=== PATIENT | male | born 1965 | race Caucasian/White ===

== ENCOUNTER → 2019-08-21 | Day surgery (SDC) | payer BC ==
--- NOTE | 2019-05-28 12:32 | Pre Op History & Physical ---
DATE OF SURGERY: 05/29/2019. CHIEF COMPLAINT: Lesions of vocal folds post workup. HISTORY OF PRESENT ILLNESS: This 53-year-old male has history of hoarseness for many years. The patient denies any dysphagia, odynophagia, or shortness of breath. He denies any choking. The patient is a smoker, but is a nondrinker. He was noted to have a lesions in his vocal folds, worse on the right side. REVIEW OF SYSTEMS: System review showed no recent cardiovascular, respiratory, or GI problem. PAST MEDICAL HISTORY: The patient has type 2 diabetes. PAST SURGICAL HISTORY: The patient has previous surgery to the elbow. ALLERGIES: HE HAS NO KNOWN ALLERGY TO MEDICATION. MEDICATIONS: He is on Jardiance, insulin 70/30, tramadol, gabapentin, Tylenol No.4, and Tizanidine. SOCIAL HISTORY: He is a pack-a-day smoker. Nondrinker. FAMILY HISTORY: Noncontributory. PHYSICAL EXAMINATION: VITAL SIGNS: The patient's vital signs were within normal limits. GENERAL: He was seen with his . HEENT: Ear exam showed normal tympanic membrane bilaterally. Nasal exam show polyps in both vocal folds. Nasal endoscopy showed the patient has mobile vocal cords bilaterally with polypoid changes of the vocal folds, right side worse than the left. No lesion in the hypopharynx was noted. Oropharynx and oral cavity show 2+ tonsils bilaterally with Mallampati level 2. NECK: Showed no lymph node or thyroid palpable. CHEST: Showed good air entry bilaterally. CARDIOVASCULAR: Showed S1, S2. No murmur noted. ASSESSMENT AND PLAN: Mr. Kumar has hoarseness and he is a smoker. He was noted to have a lesions in his vocal folds. The suggested treatment is panendoscopy, microlaryngoscopy, and biopsy and other necessary procedure. Complication of procedure includes, but not limited to bleeding, infection, perforation of the esophagus, pneumomediastinum, immediate sinusitis, airway compromise, persistent recurrence of the problem. Alternatives will be continue observation, continue antibiotic therapy, topical nasal steroid therapy, systemic steroid therapy, repeat flexible laryngoscopy exam. The patient and his have elected to undergo surgical procedure. MD EARL Azevedo/WALTER /[id number]
[~2019-08-21] MED LIST: CHANTIX0.5 MG; CRESTOR10 MG PO; DEXAMETHASONE SOD PHOS INJ 4 MG/ML VIAL ONE; EPINEPHRINE HCL 1:1000 1ML 1 MG/ML AMP ONE; FENTANYL CITRATE/PF 100MCG/2 ML INJ ONE; GABAPENTIN800 MG PO; JARDIANCE25 MG PO; LEVSIN0.125 MG; LIDOCAINE 1% W/EPINEPHRINE 20 ML VIAL ONE; LIDOCAINE HCL 2% LOCAL INJ 5 ML SDV VIAL INJ ONE; MIDAZOLAM HCL 2 MG/2 ML VIAL ONE; ONDANSETRON HCL INJ 2MG/ML 2ML 2 MG/ML VIAL ONE; OXYMETAZOLINE HCL 0.05% NAS 1 SPRAY BTL ONE; PROPOFOL IV EMULSION 10 MG/ML 20 ML VIAL ONE; SEVOFLURANE INHAL SOLN 250 ML PEN BTL ONE; SUGAMMADEX SODIUM 200 MG/2 ML VIAL IV ONE; TIZANIDINE HCL4 MG PO; TYLENOL #4 PO; ULTRAM 50MG50 MG PO; VIBERZI100 MG
--- NOTE | 2019-08-21 07:10 | Pre Op History & Physical ---
DATE OF SURGERY: 08/21/2019 CHIEF COMPLAINT: Lesion in the vocal folds bilaterally with hoarseness. HISTORY OF PRESENT ILLNESS: This 54-year-old male has hoarseness for many years. He denies any dysphagia, odynophagia, or shortness of breath. The patient has postnasal drip and discharge from his nose. He smokes more than a pack a day. He is a nondrinker. The patient was scheduled for panendoscopy and microlaryngoscopy in April of 2019. The patient keeps postponing his surgery until now. REVIEW OF SYSTEMS: System review showed no recent cardiovascular, respiratory, or GI problem. PAST MEDICAL HISTORY: The patient has type 2 diabetes. PAST SURGICAL HISTORY: He has previous surgery to his elbow. ALLERGIES: HE HAS NO KNOWN ALLERGIES TO MEDICATIONS. CURRENT MEDICATIONS: He is on: 1. Jardiance. 2. Insulin. 3. Tramadol. 4. Gabapentin. 5. Tylenol No.4. 6. Tizanidine. SOCIAL HISTORY: He smokes more than a pack a day. He is a nondrinker. FAMILY HISTORY: Noncontributory. PHYSICAL EXAMINATION: VITAL SIGNS: The patient's vital signs were within normal limits. He was seen with his . EARS: Showed normal tympanic membranes bilaterally. NASAL: Showed polyps in both nasal cavities. Nasal endoscopy showed polypoid changes in both vocal folds, right side greater than the left with mobile folds bilaterally. No lesions were noted in the hypopharynx. Oropharynx and oral cavity showed 2+ tonsils bilaterally with Mallampati level 2. NECK: Showed no lymph node or thyroid palpable. CHEST: Showed good air entry bilaterally. CARDIOVASCULAR: Showed S1 and S2. No murmur noted. 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 ASSESSMENT AND PLAN: Mr. Kumar has a lesion in the vocal folds and he is a smoker. Suggested treatments, panendoscopy, microlaryngoscopy, and biopsy and other necessary procedures. The complications of procedure includes, but not limited to bleeding, infection, perforation of the esophagus, pneumomediastinum, mediastinitis, airway compromise, hoarseness, persistent recurrence of the problem. The alternatives will be continued observation, repeat flexible laryngoscopy exam and biopsy of the lesion in the office setting. It should be noted that the patient has been worked up by GI recently for weight loss and diarrhea when he eats. The patient and his have elected to undergo surgical procedure. MD KATERIN Azevedo/MODL /[id number] cc: Dr. Casie Donald
--- OUTSIDE RECORDS SUMMARY | 2019-08-21 07:37 | XMS REPORT ---
Author Author [facility] Address Unknown Phone Unavailable Care Team Providers Care Cut Tobacco Bulker Name Role Phone Dylan Edwards Unavailable Unavailable Brandon Lopez Unavailable Unavailable Problems This patient has no known problems. Allergies, Adverse Reactions, Alerts This patient has no known allergies or adverse reactions. Medications This patient has no known medications. Results Test Description Test Time Test Comments Text Results Atomic Results Result Comments Small Bowel Series 2019-06-21 14:51:00 [place] [address] [facility]OLOG[facility] REPORT Name: ARCADIO CHARLES Acct Number: [id number] :1965 Age:53 Sex:M Ord Phys: Dylan Edwards MD Unit Number: [id number] [facility] Dr: Status: REG REF RAD Exam Date: 06/21/19 EXAM DESCRIPTION: RAD - Small Bowel Series - 06/21/2019 2:46 pm CLINICAL HISTORY: R19.7. R63.4, F17.200 Abdominal pain COMPARISON: No comparisons FINDINGS: Memory Care Director film shows a nonspecific bowel gas pattern. No obstruction or free air. No suspicious calcifications. Gastric size and mucosal fold pattern are normal. No delay in transit of contrast into the small bowel. Small bowel is normal in diameter with no mucosal fold thickening. No intrinsic or extrinsic mass identifiable. Terminal ileum has normal appearance. Transit time to the colon is normal. No fluoroscopy was performed. Total images acquired: 15 IMPRESSION: Normal small bowel series. Signed By: Bj Newman MD Signed AT: 06/21/19 1451 Chest Pa And Lat (2 Views) 2019-06-21 12:21:00 [place] [address] [facility] REPORT Name: ARCADIO CHARLES Acct Number: [id number] :1965 Age:53 Sex:M Ord Phys: Dylan Edwards MD Unit Number: [id number] [facility] Dr: Status: REG REF RAD Exam Date: 06/21/19 EXAM DESCRIPTION: RAD - Chest Pa And Lat (2 Views) - 06/21/2019 12:14 pm CLINICAL HISTORY: R19.7. R63.4, F17.200 Chest pain. COMPARISON: CHEST PA AND LAT 2 VIEW dated 09/12/2010 FINDINGS: The lungs are mildly emphysematous but clear. The heart is normal in size. No displaced fractures. IMPRESSION: Mild COPD Signed By: Bj Newman MD Signed AT: 06/21/19 1221 Anaerobic culture 2017-10-16 08:41:00 Primary Language Malian Comment LEFT OLECRANON BURSA NO ANAEROBES GROWN.^NO ANAEROBES GROWN.^L Gram stain 2017-10-16 08:41:00 NO ORGANISMS SEEN (test code=NO ORGAN) . NO WBCS SEEN (test code=NO WBCS) . Primary Language Malian Comment LEFT OLECRANON BURSAGlucose blood fingerstick 2017-10-15 11:44:00* Test Item Value Reference Range Comments Glucose blood fingerstick (test rkgf=TSO8849) 141 mg/dL 65-120 Bacterial culture w [id number] 10:40:00* Test Item Value Reference Range Comments Bacterial culture w ID (test uqfn=7333-0) NO GROWTH Primary Language Malian Comment LEFT OLECRANON BURSAGlucose blood fingerstick 2017-10-15 08:10:00* Test Item Value Reference Range Comments Glucose blood fingerstick (test dbqh=GIJ3987) 159 mg/dL 65-120 Glucose blood uhbpggxuwit7327-17-49 20:10:00* Test Item Value Reference Range Comments Glucose blood fingerstick (test qejf=XEN4768) 231 mg/dL 65-120 Glucose blood vkgokblrxbj2925-44-19 15:38:00* Test Item Value Reference Range Comments Glucose blood fingerstick (test yiba=IZG1291) 128 mg/dL 65-120 Trough vancomycin dlhvn2839-65-61 14:49:00* Test Item Value Reference Range Comments Trough vancomycin level (test xpgo=4821-5) 11.3 ug/mL 5-20 INDICATIONS AND DESIRED TROUGH LEVELS: Nosocomial & ventilator associated pneumonia, SHAKER FLATWORK infections (e.g. Meningitis), Osteomyelitis, & Prosthetic joint infections..................................15-20 ug/mL Endocarditis, febrile neutropenia...............10-15 ug/mL All other indications........................... 5-15 ug/mL Primary Language EnglishGlucose blood biygelbhtwx8112-54-33 14:25:00* Test Item Value Reference Range Comments Glucose blood fingerstick (test nwcj=XFV5391) 132 mg/dL 65-120 Glucose blood bqrcgazxdjy6803-93-61 11:41:00* Test Item Value Reference Range Comments Glucose blood fingerstick (test prii=ACM0153) 127 mg/dL 65-120 06629--ZXFS PATH LEVEL 59091-27-35 09:40:00 RUN DATE: 10/14/17 [facility]Edith walker* PAGE 1 RUN TIME: 940 Specimen Inqu irina PATIENT: ARCADIO CHARLES ACC T: [id number] LOC: 2ND U: [id number] AGE/SX: 52/M ROOM: 206 RE10/11/17REG DR: [facility] shanita Lopez MD : 1965 BED: A DIS: STATUS: ADM IN TLOC: SP EC : [id number] RECD: 10/13/17 STATUS: JENNIFER DENNEY NUM: [id number] PEDRO: 10/12/17 DR: Merrick Lopez MD ENTERED: 10/13/17 SP TYPE: INPATIENT OTHR DR: Nathen Jason MD ORDERED: [id number] CODES: ELBOW, NOS COPIES TO: Nathen Jason MD [address] [place], [place] [address] Merrick Lopez MD [address] [facility] [address] [place] [address] PROCEDURES: 33635 (10/13/17) TISSUES: ELBOW, NOS - LEFT OLECRANON DEBRIDEMENT TISSUE CLINICAL HISTORY Pre-op Diagnosis: Left septic olecranon bursa.Post-op Diagnosis: Same. DIAGNOSIS Left olecranon debrideme nt tissue: - Bursa sac with bursitis CPT 32451 GROSS DESCRIPTION The case is received in one part, labeled with the patient's name "Arcadio Charles" and accession #[id number] accompanied by a requisition slip labeled with the patient's name andthe same accession number. The specimen is received in formalin, labeled "left olecranon debridement tissue" andconsists of a fragment of purple-chavez s oft tissue measuring 7.5 x 2.7 x 1 cm. The cutsection reveals fibrous tissue and a possible bursa sac. Several appeals representative sections aresubmitted in two puebloe ttes. (ASW) CONTINUED ON NEXT PAGE --- --------- RUN DATE: 10/14/17 [facility]* PAGE 2 RUN TIME: 940 Specimen Inquiry SPEC: [id number] PATIENT: ARCADIO CHARLES [id number] (Continued) MICROSCOPIC DESCRIPT ION Sections show an apparent bursa sac with a thickened fibrous wall with chron ic reactivechanges. Within the sac, there is associated fibrinous material.----- ------- Signed (signature on file) Kaylie Marinelli MD 8 0940 END OF REPORT Glucose blood jmrzeonsgfx5685-46-56 08:07:00* Test Item Value Reference Range Comments Glucose blood fingerstick (test upnu=ZPZ6173) 170 mg/dL 65-120 Glucose blood hnqvpgnyefz2445-14-13 20:51:00* Test Item Value Reference Range Comments Glucose blood fingerstick (test zyrh=KQV6390) 182 mg/dL 65-120 Glucose blood twuhysakxvb4303-84-28 16:15:00* Test Item Value Reference Range Comments Glucose blood fingerstick (test nbdg=IAB8896) 154 mg/dL 65-120 Glucose blood bvkrlfzlylt1739-85-18 13:32:00* Test Item Value Reference Range Comments Glucose blood fingerstick (test ydil=KBI1440) 143 mg/dL 65-120 Glucose blood mracniqsrup0165-55-21 13:32:00* Test Item Value Reference Range Comments Glucose blood fingerstick (test sprw=XQW8779) 191 mg/dL 65-120 Glucose blood itluofyskrx7885-21-29 13:31:00* Test Item Value Reference Range Comments Glucose blood fingerstick (test bjra=FIP5084) 189 mg/dL 65-120 Glucose blood kzcukotllbf7477-24-93 13:31:00* Test Item Value Reference Range Comments Glucose blood fingerstick (test vkjf=NGI6439) 150 mg/dL 65-120 Glucose blood qxmzmkvsnfe8156-29-67 13:31:00* Test Item Value Reference Range Comments Glucose blood fingerstick (test qixc=BYF1853) 132 mg/dL 65-120 Glucose blood yjpeobyhdcz0528-55-91 13:31:00* Test Item Value Reference Range Comments Glucose blood fingerstick (test ddng=GRH5599) 205 mg/dL 65-120 Glucose blood cfzmmtdcsgm3048-88-40 13:31:00* Test Item Value Reference Range Comments Glucose blood fingerstick (test aakj=YQN8444) 100 mg/dL 65-120 Glucose blood oorqrzhorkt7663-13-87 13:29:00* Test Item Value Reference Range Comments Glucose blood fingerstick (test apbf=LNY9504) 138 mg/dL 65-120 Glucose blood oiawxnqgydd4545-16-53 13:27:00* Test Item Value Reference Range Comments Glucose blood fingerstick (test ojrz=XRV4254) 197 mg/dL 65-120 Trough vancomycin jsaqu4999-11-55 03:30:00* Test Item Value Reference Range Comments Trough vancomycin level (test nrqz=1921-8) 11.9 ug/mL 5-20 INDICATIONS AND DESIRED TROUGH LEVELS: Nosocomial & ventilator associated pneumonia, SHAKER FLATWORK infections (e.g. Meningitis), Osteomyelitis, & Prosthetic joint infections..................................15-20 ug/mL Endocarditis, febrile neutropenia...............10-15 ug/mL All other indications........................... 5-15 ug/mL Primary Language SxoxeroGpyfgdfqfq3933-22-12 10:40:00* Test Item Value Reference Range Comments Urine color (test zcyd=6799-4) YELLOW Urine appearance determination (test wsjd=7764-9) CLEAR Urine specific gravity measurement (test sxaf=1944-2) 1.015 1.005-1.030 Urine glucose detection (test yalw=8459-6) 3+ NEG Urine bilirubin detection (test zstv=2769-7) Negative NEG Urine Ketones (test code=UKET) NEGATIVE NEG Urine blood detection (test ftkc=13896-9) Negative NEG Urine pH (test hrnr=3709-1) 5.5 5.0-7.0 Urinalysis with microscopy (test wlqm=98436-9) NEGATIVE NEG Urine urobilinogen detection (test gqoz=66733-8) 0.2 0.2-1.0 Urine Nitrate (test code=UNIT) NEGATIVE NEG Urine Leukocyte Esterase (test code=UESTR) NEGATIVE NEG Primary Language Malian HOW IS URINE COLLECTED? Clean Catch UrineComprehensive metabolic tpoxo9398-94-09 12:57:00* Test Item Value Reference Range Comments Sodium level (test zdbd=EWS4126) 135 meq/L 135-145 4.3 Chloride measurement (test quiq=QHE4786) 102 meq/L 101-111 Bicarbonate (test code=CO2) 27 meq/L 21-31 Glucose measurement (test yszh=EVX5887) 254 mg/dL 65-120 ADA Clinical Practice Recommendation: <100 mg/dl=Normal Fasting Glucose BUN Bld-mCnc (test nslr=8923-4) 9 mg/dL 6-20 Creatinine measurement (test nuxd=QNZ4004) 0.83 mg/dL 0.61-1.24 The creatinine method used has been calibrated to be traceable to Isotope dilution Mass Spectrometry (IDMS). For more information: www.nkdep.nih.gov Estimated glomerular filtration rate (GFR) determination (test lndq=50426-6) >90 mL =/>90 FOR CHRONIC KIDNEY DISEASE: GFR STAGE DESCRIPTION=/>90 STAGE 1 NORMAL--OR-- MINIMAL KIDNEY DAMAGE WITH NORMAL GFR 60-89 STAGE 2 MILD DECREASE IN GFR 30-59 STAGE 3 MODERATE DECREASE IN GFR 15-29 STAGE 4 SEVERE DECREASE IN GFR <15 STAGE 5 KIDNEY FAILURE The Glomerular Filtration Rate (GFR) has been calculated using the IDMS-Traceable MDRD Study Equation. Aspartate aminotransferase (AST) measurement (test uhfc=XZH5868) 17 [iU]/L 10-42 ALT/SGPT (test code=SGPT) 18 [iU]/L 10-60 Alkaline Phosphatase (test code=ALK) 86 [iU]/L 42-121 Bilirubin total (test cwtp=LDF5642) 0.4 mg/dL 0.3-1.2 Calcium Level (test code=CA) 9.3 mg/dL 8.5-10.5 Serum total protein measurement (test acjn=2477-7) 7.5 g/dL 6.0-8.3 Albumin measurement (test boxx=WSB3661) 4.2 g/dL 3.2-5.5 Globulin (test code=GLOB) 3.3 g/dL 2.3-3.5 Albumin/Globulin Ratio (test code=A/G) 1.3 1.1-1.8 Primary Language EnglishC-Reactive Pfixqka8301-21-85 12:57:00* Test Item Value Reference Range Comments C-Reactive Protein (test code=CRP) 5.2 mg/L <10.0 Primary Language EnglishErythrocyte sedimentation rate (ESR) by Westergren oekzjl7002-06-11 12:51:00* Test Item Value Reference Range Comments Erythrocyte sedimentation rate (ESR) by Westergren method (test evrm=1675-8) 1 mm/HR 0-20 Primary Language EnglishComplete blood count (CBC) with automated white blood cell (WBC) ysmzavcixonk0905-30-48 11:30:00* Test Item Value Reference Range Comments White blood cell count (test rszt=KRG9140) 9.2 4.3-10.9 Blood erythrocytes count (number/volume) (test sfip=67603-9) 5.51 M/ul 4.33-5.43 Hemoglobin measurement (test rfnp=OML3269) 17.0 g/dL 13.6-17.9 Blood hematocrit (volume fraction) (test uwlq=52594-2) 49.6 % 39.6-49.0 MCV (test uehk=65972-0) 90.1 fL 80-100 MCH (test erjk=91706-1) 30.8 pg 27.0-35.0 MCHC (test code=MCHC) 34.2 g/dL 32.0-36.0 Platelets (test code=PLT) 293 152-406 Red Cell Distribution Width (test code=RDW) 13.0 % 12.1-15.2 Blood platelet mean volume (test wydl=74406-9) 9.0 fL 7.6-11.3 Neutrophils % (test code=SANDEEP%) 63.4 % 41.7-73.7 Lymphocytes/leuk NFr Bld (test tnwe=45190-2) 24.5 % 15.3-44.8 Monocyte percentage (test olvw=9618-1) 7.7 % 3.3-12.3 Eosinophil % (test zumf=157-1) 3.9 % 0-4.4 Basophil % (test izwb=71666-3) 0.5 % 0-1.3 Absolute neutrophil count (test elba=525-6) 5.9 1.8-8.0 Absolute lymphocyte count (test ozot=37216-4) 2.3 0.7-4.9 Absolute monocyte count (test bnho=464-1) 0.7 0.1-1.3 Absolute Eosinophils (test code=EOA) 0.4 0-0.5 Absolute Basophils (test code=BASA) 0.0 0-0.5 Primary Language Malian
--- OUTSIDE RECORDS SUMMARY | 2019-08-21 07:37 | XMS REPORT | Continuity of Care Document ---
Author Author [facility] Address [address] [place] [address] Care Team Providers Care Senior Data Quality Analyst Name Role Phone Merrick Lopez Attphys Nathen Jason PCP Nathen Jason PCP Denisse Morrell Rndphys Allergies, Adverse Reactions, Alerts No known allergies. Medications Active Medications Medication Dose Units Route Sig Qty Days Start Date Discontinued Date Status Instructions Acetaminophen With Codeine 1 TAB ORAL AT BEDTIME October 11, 2017 Active Dapagliflozin Propanediol 10 MG ORAL DAILY October 11, 2017 Active Gabapentin 600 MG ORAL FOUR TIMES DAILY October 11, 2017 Active Tramadol Hcl 2 TAB ORAL THREE TIMES A DAY October 11, 2017 Active Tizanidine 4 MG ORAL AT BEDTIME October 11, 2017 Active Doxycycline Hyclate 100 MG ORAL TWICE DAILY 24 October 15, 2017 Active Codeine/Apap 1 TAB ORAL EVERY 6 HOURS NEEDED PRN For Pain 40 October 15, 2017 Active Problem List Active Problems Medical Problem Onset Date Status Septic olecranon bursitis October 13, 2017 Active Procedures Procedure Date Status Gram Stain October 12, 2017 completed Culture & Sensitivity October 12, 2017 completed Relevant Diagnostic Tests and/or Laboratory Data Laboratory Results Test Date/Time Result Interp. Ref. Range Result Comment White Blood Count October 11, 2017 11:04am 9.2 K/uL 4.3-10.9 Red Blood Count October 11, 2017 11:04am 5.51 M/uL High 4.33-5.43 Hemoglobin October 11, 2017 11:04am 17.0 g/dL 13.6-17.9 Hematocrit October 11, 2017 11:04am 49.6 % High 39.6-49.0 Mean Corpuscular Volume October 11, 2017 11:04am 90.1 fL 80-100 Mean Corpuscular Hemoglobin October 11, 2017 11:04am 30.8 pg 27.0-35.0 Mean Corpuscular Hemoglobin Concent October 11, 2017 11:04am 34.2 g/dL 32.0-36.0 Platelet Count October 11, 2017 11:04am 293 K/uL 152-406 Red Cell Distribution Width October 11, 2017 11:04am 13.0 % 12.1-15.2 Mean Platelet Volume October 11, 2017 11:04am 9.0 fL 7.6-11.3 Neutrophils % October 11, 2017 11:04am 63.4 % 41.7-73.7 Lymphocytes % October 11, 2017 11:04am 24.5 % 15.3-44.8 Monocytes % October 11, 2017 11:04am 7.7 % 3.3-12.3 Eosinophils % October 11, 2017 11:04am 3.9 % 0-4.4 Basophils % October 11, 2017 11:04am 0.5 % 0-1.3 Absolute Neutrophil October 11, 2017 11:04am 5.9 K/uL 1.8-8.0 Absolute Lymphocytes (CBC) October 11, 2017 11:04am 2.3 K/uL 0.7-4.9 Absolute Monocytes (CBC) October 11, 2017 11:04am 0.7 K/uL 0.1-1.3 Absolute Eosinophils (CBC) October 11, 2017 11:04am 0.4 K/uL 0-0.5 Absolute Basophils (CBC) October 11, 2017 11:04am 0.0 K/uL 0-0.5 Sedimentation Rate, [place] October 11, 2017 11:04am 1 mm/HR 0-20 Sodium Level October 11, 2017 11:04am 135 mEq/L 135-145 Potassium Level October 11, 2017 11:04am 4.3 mEq/L 3.6-5.0 Chloride Level October 11, 2017 11:04am 102 mEq/L 101-111 Carbon Dioxide Level October 11, 2017 11:04am 27 mEq/L 21-31 Glucose Level October 11, 2017 11:04am 254 mg/dL High 65-120 ADA Clinical Practice Recommendation: <100 mg/dl=Normal Fasting Glucose Bedside Glucose October 15, 2017 11:43am 141 mg/dl High 65-120 Blood Urea Nitrogen October 11, 2017 11:04am 9 mg/dL 6-20 Creatinine October 11, 2017 11:04am 0.83 mg/dL 0.61-1.24 The creatinine method used has been calibrated to be traceable to Isotope dilution Mass Spectrometry (IDMS). For more information: www.nkdep.nih.gov Estimat Glomerular Filtration Rate October 11, 2017 11:04am > 90 mL/min 90- FOR CHRONIC KIDNEY DISEASE: GFR STAGE DESCRIPTION =/>90 STAGE 1 NORMAL--OR-- MINIMAL KIDNEY DAMAGE WITH NORMAL GFR 60-89 STAGE 2 MILD DECREASE IN GFR 30-59 STAGE 3 MODERATE DECREASE IN GFR 15-29 STAGE 4 SEVERE DECREASE IN GFR <15 STAGE 5 KIDNEY FAILURE The Glomerular Filtration Rate (GFR) has been calculated using the IDMS-Traceable MDRD Study Equation. Aspartate Amino Transf (AST/SGOT) October 11, 2017 11:04am 17 IU/L 10-42 Alanine Aminotransferase (ALT/SGPT) October 11, 2017 11:04am 18 IU/L 10-60 Alkaline Phosphatase October 11, 2017 11:04am 86 IU/L 42-121 Total Bilirubin October 11, 2017 11:04am 0.4 mg/dL 0.3-1.2 Calcium Level October 11, 2017 11:04am 9.3 mg/dL 8.5-10.5 Serum Total Protein October 11, 2017 11:04am 7.5 g/dL 6.0-8.3 Albumin October 11, 2017 11:04am 4.2 g/dL 3.2-5.5 Globulin October 11, 2017 11:04am 3.3 g/dL 2.3-3.5 Albumin/Globulin Ratio October 11, 2017 11:04am 1.3 1.1-1.8 C-Reactive Protein October 11, 2017 11:04am 5.2 mg/L Vancomycin Level Trough October 14, 2017 2:13pm 11.3 ug/mL 5-20 INDICATIONS AND DESIRED TROUGH LEVELS: Nosocomial & ventilator associated pneumonia, STERILE PROCESSING TECHNOLOGIST infections (e.g. Meningitis), Osteomyelitis, & Prosthetic joint infections..................................15-20 ug/mL Endocarditis, febrile neutropenia...............10-15 ug/mL All other indications........................... 5-15 ug/mL Urine Color October 12, 2017 7:20am Yellow Urine Appearance October 12, 2017 7:20am Clear Urine Specific [place] October 12, 2017 7:20am 1.015 Urine Glucose October 12, 2017 7:20am 3+ Urine Bilirubin October 12, 2017 7:20am Negative Urine Ketones October 12, 2017 7:20am Negative Urine Blood October 12, 2017 7:20am Negative Urine pH October 12, 2017 7:20am 5.5 Urine Total Protein October 12, 2017 7:20am Negative Urine Urobilinogen October 12, 2017 7:20am 0.2 mg/dL Urine Nitrite October 12, 2017 7:20am Negative Urine Leukocyte Esterase October 12, 2017 7:20am Negative Microbiology Results Procedure Source Result Collection Date/Time Result Date/Time Culture & Sensitivity Wound No results entered October 12, 2017 2:55pm Gram Stain Wound No results entered October 12, 2017 2:55pm Discharge Summary Encounter: Discharged Inpatient Admit Date: October 11, 2017 10:35am Discharge Date: October 15, 2017 12:20pm [facility] NAME: ARCADIO CHARLES ADMITTING: Merrick Lopez MD ADMIT DATE: 10/11/17 ATTENDING: Merrick Lopez MD : 1965 ACCOUNT NO: [id number] PATIENT TYPE: ADM IN LOCATION: [facility] Report Status: Signed Date of Procedure: 10/12/17 Surgeon: Merrick Lopez MD Date of Procedure: 10/12/2017 Surgeon: Merrick Lopez MD Preoperative Diagnosis: Left elbow septic olecranon bursitis. Postoperative Diagnosis: Left elbow septic olecranon bursitis. Procedure Performed: Left elbow irrigation and debridement with bursectomy, leaving it open. Estimated Blood Loss: 20 cc. Complications: There were no complications. Specimens: There was a pathology specimens sent as well as culture specimen sent. Indications For Operation: Mr. Charles is a patient who arrived to see me. He has already had quite a bit of time treating his olecranon which had been quite swollen consistent with olecranon bursitis. At that time, he had not made any significant decreases in his condition, but was not progressing well. He had an aspiration which demonstrated gram-positive cocci and gram-negative rods. However, the cultures did not demonstrate any bacteria. Also, there were no crystals in the fluid. He has been treated with ciprofloxacin as well as Bactrim and essentially has not made any meaningful improvement. So, he does have a slight amount of decrease in erythema and pain. He was , therefore, admitted yesterday for IV antibiotics. He was started on vancomycin. White blood cell count was normal, and sedimentation rate was 1. However, at this time, it is deemed appropriate to pursue bursectomy with irrigation and debridement. All risks, benefits, and alternatives to this have been discussed with the patient. He states he understands things as presented and wishes to proceed. Description Of Procedure: The patient was taken to the operating room and placed in supine position. General anesthesia was obtained by staff. Following this, there were some pillows laid over his abdomen, and his left upper extremity was then prepped and draped in the usual sterile fashion. Following this, the incision was marked out, and the arm was elevated, but not exsanguinated, and tourniquet was raised. It was then laid gently over his stomach with a small bump under his arm to allow for visualization. A standard incision, which was slightly lateral to the olecranon, was then taken down carefully through skin only. Meticulous hemostasis was being maintained using Bovie electrocautery. This proceeded up to the most proximal aspect of the bursa. This was then shelled off from a distal lateral position down to a proximal lateral position, essentially bringing this across slightly past the midline. After this, extreme care was taken on the medial aspect where this was shelled out from the medial distal portion and brought back. Great care was taken around the ulnar nerve, and meticulous hemostasis was maintained. The bursa was then removed. Combination of curette and rongeur was then used to remove any nonviable- appearing tissue. The arm was then copiously irrigated with 2 L of sterile saline. This was followed by dropping of the tourniquet and controlling hemostasis with Bovie. These typically will ooze from nearly everywhere. However, following the use of the Bovie, some pressure was applied, and there was found to be no significant bleeding. A moistened Kerlix was then placed within the wound bed, and it was then covered with 3 ABDs. This was followed by placement of soft roll, followed by a posterior splint. The patient was then awakened and taken to recovery room in good condition. SE/MODL Voice ID: [id number] Report ID: [id number] <Electronically signed by Merrick Lopez MD> 10/13/17 1141 Advance Directives Advance Directive Response Recorded Date/Time Does Patient Have Living Will No October 13, 2017 6:00pm Durable Power of Radio Rigger for Health Care No October 11, 2017 11:16am Would you like additional information No October 11, 2017 11:16am Chief Complaint and Reason for Visit Encounter Admit Date Chief Complaint Reason for Visit Discharged Inpatient October 11, 2017 10:35am LUE SEPTIC BURSITIS Septic olecranon bursitis Hospital Discharge Instructions Query Response Comment Date/Time Discharge Instruction given to Patient/Caregiver Yes 10/15/2017 12:17 Additional Discharge Instructions PROBLEM: Left Olecranon septic bursitis, Bursectomy GOAL: Clear understanding of disease process INSTRUCTIONS: - Keep your left arm in the splint. - Follow up with Dr. Lopez 2 weeks after surgery or sooner if you have problems. - New prescriptions for Tylenol #3 and Doxycycline. Continue taking Bactrim DS from home also. Diet: 1800 ADA Activity: As tolerated IMMUNIZATION Pneumonia Vaccine Indicated: No Pneumonia Vaccine Given: Date Given: Instruction/Education Provided Elbow Bursitis, Dgxi-[id number] Incision and Drainage, Care After Hospital Discharge Medications Medication Dose Units Route Sig Qty Days Order Date Status Instructions Acetaminophen With Codeine 1 TAB ORAL AT BEDTIME October 11, 2017 Active Dapagliflozin Propanediol 10 MG ORAL DAILY October 11, 2017 Active Gabapentin 600 MG ORAL FOUR TIMES DAILY October 11, 2017 Active Tramadol Hcl 2 TAB ORAL THREE TIMES A DAY October 11, 2017 Active Tizanidine 4 MG ORAL AT BEDTIME October 11, 2017 Active Doxycycline Hyclate 100 MG ORAL TWICE DAILY 24 October 15, 2017 Active Codeine/Apap 1 TAB ORAL EVERY 6 HOURS NEEDED PRN For Pain 40 October 15, 2017 Active Encounters Encounter Facility Location Admit Date Discharge Date Attending Provider [facility] October 11, 2017 10:35am October 15, 2017 12:20pm Merrick Lopez Encounter Diagnosis Onset Date Septic olecranon bursitis October 13, 2017 Functional Status Query Response Date Recorded Comment Mental Status Oriented to Own Ability October 15, 2017 7:46am Mental Status on Discharge Awake Alert Appropriate Follows Commands October 15, 2017 12:17pm Query Response Date Recorded Comment [place] Self Independent October 11, 2017 11:16am Completes ADL's Without Assistance Yes October 11, 2017 11:16am Cook for Self Independent October 11, 2017 11:16am Dress/[place] Self Independent October 11, 2017 11:16am Feed Self Independent October 11, 2017 11:16am Toileting Independent October 11, 2017 11:16am Immunizations No known immunizations. Payers Payer Name Policy Type Covered Alliance Party Covered Alliance Party Id Relationship Subscriber Subscriber Id [employer] GENE ARACELI [id number] SAME PATIENT (SELF) GENE ARACELI [id number] Plan of Care Instructions Elbow Bursitis, Jjyt-rh-Xehf Incision and Drainage, Care After Social History Query Response Date Recorded Comment Alcohol Use? No October 11, 2017 11:16am CD- Drugs? No October 11, 2017 11:16am Query Response Start Date Stop Date Smoking Status Current every day smoker June 27, 1982 Vital Signs Vital Reading Result Reference Range Collection Date/Time Height 5 ft 10 in October 14, 2017 10:00am Weight 166 lb 4.8 oz October 14, 2017 10:00am Temperature 97.5 F 96.8 F-100.9 F October 15, 2017 8:00am Pulse 96 BPM 50-90 October 15, 2017 8:00am Respiration 20 RPM -October 15, 2017 8:00am Pulse Oximetry 93 % 91- October 15, 2017 8:00am Blood Pressure Systolic 119 90-140 October 15, 2017 8:00am Blood Pressure Diastolic 79 60-90 October 15, 2017 8:00am Body Mass Index 23.8 October 14, 2017 10:00am
--- NOTE | 2019-08-21 08:40 | Diagnostic Imaging Report ---
Exam: Chest radiograph Clinical History: Preoperative clearance Findings: The cardiomediastinal silhouette and lungs are normal. The regional skeleton and soft tissue are unremarkable. There is no evidence of pleural effusion or pneumothorax. Impression: No radiographic evidence of acute cardiopulmonary disease. Signed by: Dr. Javon Bourne MD on 08/21/2019 8:37 AM
[2019-08-21 10:35] VITALS: BP 113/76
--- NOTE | 2019-08-21 16:11 | Operative Report ---
DATE OF PROCEDURE: 08/21/2019 SURGEON: Say Kennedy MD PREOPERATIVE DIAGNOSIS: Hoarseness and lesion in the vocal folds. POSTOPERATIVE DIAGNOSIS: Hoarseness and lesion in the vocal folds. PROCEDURES PERFORMED: 1. Direct laryngoscopy. 2. Rigid esophagoscopy. 3. Rigid bronchoscopy. 4. Microlaryngoscopy. 5. Micro flap removal of lesions on the right vocal fold. ANESTHESIA: Anesthesiology group. INDICATIONS: This 54-year-old male has a longstanding history of hoarseness. The patient is a smoker and drinker. The patient on examination was noted to have polypoid changes in the vocal folds bilaterally worse on the right side. It was decided that panendoscopy, microlaryngoscopy, and biopsy and other necessary procedures with micro flaps and other necessary procedures will be beneficial for him. DESCRIPTION OF PROCEDURE: The patient was taken to the operating room, put under general anesthesia, endotracheally intubated. The rigid esophagoscopy was performed. The esophagoscope was passed through the cricopharyngeus muscle. The esophagus was examined to about 25 cm from the incisor. Some reflux was noted. No other abnormality was noted. The rigid bronchoscopy was performed. A sizeable bronchoscope with Montesinos wire was used. The bronchoscope was passed via the endotracheal tube. Endotracheal tube cuff was deflated. Trachea was examined under cate. No abnormality was noted. The bronchoscope was retrieved. Endotracheal cuff was reinflated. The direct laryngoscopy was performed. The Dedo laryngoscope was used. Oropharynx and oral cavity were examined. No abnormality was noted. The piriform sinus on either side was examined. No abnormality was noted. The larynx was examined. Polypoid changes were noted in both vocal folds. The microlaryngoscopy was performed. The laryngoscope was put on suspension and the operating microscope was brought in. The larynx was re-examined. On close examination of the larynx, it was noted that the left vocal fold really did not show any polypoid changes. No obvious mucosal changes were noted in the left vocal folds. The large lesion about a cm was noted in the anterior portion of the airway and seems to be coming from the right vocal fold. Excision of the right vocal fold lesion was undertaken. The lesion was retracted laterally. The micro flap was done on the anterior superior portion of the right vocal fold. This was dissected and the lesion came off with micro flap. Size of lesion as mentioned was about a cm. Hemostasis on the vocal fold was achieved using epinephrine-soaked pledgets. After the lesion was excised, the larynx was re-examined. Both the true and false vocal folds were examined. No other abnormality was noted. The patient tolerated the above procedure well with minimal blood loss. He was given 20 mg of Decadron intraoperatively. The patient was able to be transferred to recovery room in stable condition. MD EARL AzevedoH/MODL /[id number]
== END | disposition home or self-care (01) ==
LOC: OR 07:34
PROVIDERS: ATTEND Otolaryngology Otolaryngology/Facial Plastic Surgery
DX: J38.1 Polyp of vocal cord and larynx (principal); K21.9 Gastro-esophageal reflux disease without esophagitis; E11.9 Type 2 diabetes mellitus without complications; G62.9 Polyneuropathy, unspecified; I10 Essential (primary) hypertension; E78.5 Hyperlipidemia, unspecified; F17.210 Nicotine dependence, cigarettes, uncomplicated; Z79.4 Long term (current) use of insulin; Z79.84 Long term (current) use of oral hypoglycemic drugs
CPT/HCPCS: 31541; 31622; 36415; 43191; 71046; 82948; 88305; 93005; J1100; J2001; J2250; J2405; J2704; J3010; J0171